=== PATIENT | female | born 1950 | race Caucasian/White ===

== ENCOUNTER 2020-01-22 11:45 | Outpatient (REF) | payer MEDICARE, SELFPAY ==
[2020-01-22 12:46] LABS: MANUAL DIFF FLAG NO
[2020-01-22 12:58] LABS: Basophils Percent Auto 0.4 % (0-2); Eosinophils Absolute Auto 0.1 X10*3/uL (0.0-0.4); Eosinophils Percent Auto 0.9 % (0-4); Hematocrit 38.7 % (37-47); Hemoglobin 12.9 g/dl (12.0-16.0); Imm Gran Abs Auto 0.01 X10*3/uL (0.00-0.03); Imm Gran Pct Auto 0.2 % (0.0-0.4); Lymphocytes Absolute Auto 1.5 X10*3/uL (1.2-4.9); Lymphocytes Percent Auto 27.8 % (20-40); Mean Corpuscular HGB Conc 33.3 g/dl (31.0-35.0); Mean Corpuscular Hemoglobin 31.4 pg (27.0-33.0); Mean Corpuscular Volume 94.2 fL (80-98); Mean Platelet Volume 11.6 fL (9.4-12.3); Monocytes Absolute Auto 0.3 X10*3/uL (0.1-1.2); Monocytes Percent Auto 5.8 % (2-11); Neutrophils Absolute Auto 3.6 X10*3/uL (2.0-8.3); Neutrophils Percent Auto 64.9 % (45-73); Platelet Count 234 X10*3/uL (160-400); Red Blood Count 4.11 X10*6/uL (4.20-5.50); Red Cell Distribution Width 13.4 % (11.0-16.0); White Blood Count 5.5 X10*3/uL (4.8-10.8)
[2020-01-22 13:31] LABS: INTERNATIONAL NORM RATIO 1.3 (0.9-1.1); Prothrombin Time 15.2 SEC (10.8-13.0)
[2020-01-22 13:44] LABS: Partial Thromboplastin Time 105.2 SEC (24.1-38.0)
[2020-01-22 13:49] LABS: TSH reflex Free T4 0.97 mIU/mL (0.32-4.0)
[2020-01-22 13:50] LABS: Alanine Aminotransferase 16 U/L (0-31); Albumin Level 4.1 g/dL (3.5-5.0); Alkaline Phosphatase 61 U/L (39-117); Anion Gap 12 (12-20); Aspartate Amino Transferase 22 U/L (5-31); Bilirubin Total 0.5 mg/dL (0.0-1.0); Blood Urea Nitrogen 16 mg/dL (9-16); C Reactive Protein 0.15 mg/dL (< or = 0.50); Calcium 8.8 mg/dL (8.4-10.2); Carbon Dioxide 29 mmol/L (22-29); Chloride 102 mmol/L (96-108); Cholesterol 181 mg/dL; Estimated Glomerular Filt Rate > 60; Glucose Random 79 mg/dL (60-115); HDL Cholesterol 66 mg/dL; LDL Cholesterol Calculated 101 mg/dl; Potassium 4.3 mmol/l (3.3-5.1); Sodium 139 mmol/L (135-145); Total Protein 6.4 g/dL (6.5-8.0); Triglycerides 72 mg/dL
[2020-01-22 17:45] LABS: Estimated Average Glucose 97 mg/dL
[2020-01-26 12:17] LABS: Insulin Level Total 2.4 uIU/mL
== END 2020-01-22 11:46 | disposition home or self-care (01) ==
LOC: HO.LAB 11:45
PROVIDERS: PCP Psychiatry & Neurology Child & Adolescent Psychiatry; Visit Provider Surgery
DX: E03.9 Hypothyroidism, unspecified (principal); M79.3 Panniculitis, unspecified; E66.3 Overweight; K90.9 Intestinal malabsorption, unspecified
CPT/HCPCS: 36415; 80053; 80061; 83036; 83525; 84443; 85025; 85610; 85730; 86140

== ENCOUNTER 2020-01-29 05:27 | Inpatient (IN) | payer MEDICARE, SELFPAY ==
[2020-01-22 09:05] VITALS: BMI 28.0
--- NOTE | 2020-01-27 14:54 | HO.ANESPROP2 ---
Documented by User: Zamzam Potter 01/27/20 14:56 HPI - Anesthesia Eval Consult details Narrative: 69yo F for panniculectomy and brachioplasty s/p sleeve gastrectomy 2015 [facility] Past Medical History Medical History (Updated 01/23/20 @ 20:38 by Hemanth Staton MD) Arthritis Heart murmur Hypothyroidism Kidney anomaly, congenital Lupus anticoagulant disorder Mitral regurgitation Sleep apnea Thyroid disease Family History Family History Father Lung cancer Mother Lung cancer Brother Prostate CA Daughter No problems noted. Daughter No problems noted. Surgical History Surgical History (Updated 01/22/20 @ 09:14 by Chari Tran) H/O arthroscopy of shoulder History of esophagogastroduodenoscopy (EGD) History of oophorectomy, unilateral History of sleeve gastrectomy History of tonsillectomy and adenoidectomy Hx of section S/P hip replacement S/P DANGELO-BSO (total abdominal hysterectomy and bilateral salpingo-oophorectomy) S/P TKR (total knee replacement) Social History Social History Are you a primary home care nurse to a significant other at home: No Do you presently have visiting nurse or other home services: No Alcohol intake: never Smoking Status: Never smoker Use of substances other than those prescribed or required for medical reasons: No Have you been hit, kicked, punched, or otherwise hurt by someone within the past year? If so, by whom?: No Spiritual Healthcare Practices: none Islam Healthcare Practices: none Cultural Healthcare Practices: none Advance Directives Information Provided: No Recently lost weight without trying: No Meds Allergies Allergy/AdvReac Type Severity Reaction Status Date / Time RAH Inhibitors AdvReac Intermediate COUGH Verified 01/22/20 09:21 [RAH INHIBITORS] diltiazem [Cardizem] AdvReac Unknown Unknown Verified 01/21/20 14:29 BETA BLOCKERS Allergy Intermediate LETHARGIC, Uncoded 01/21/20 14:29 DEPRESSED Seasonal Allergies Allergy Mild Itchy Eyes Uncoded 01/22/20 09:21 Home Medications Medication Instructions Recorded Confirmed Type docusate sodium 100 mg capsule 100 mg PO DAILY 01/19/20 01/22/20 History duloxetine 30 mg capsule,delayed 30 mg PO DAILY 01/19/20 01/22/20 History release levothyroxine 75 mcg tablet 75 mcg PO DAILY 01/19/20 01/22/20 History Exam Exam Date and Time: January 27, 2020 1454 Height,Weight and Vital Signs: Height 4 ft 11.5 in Weight 63.957 kg Pertinent Lab Results Pertinent Lab Results: Laboratory Tests 01/22/20 12:00 Blood Type O Positive Antibody Screen NEGATIVE Laboratory Tests 01/22/20 01/22/20 12:00 12:00 WBC 5.5 Hgb 12.9 Hct 38.7 Plt Count 234 Sodium 139 Potassium 4.3 Chloride 102 BUN 16 Creatinine 0.73 Assessment and Plan Assessment Anesthesia Assessment: Chart Reviewed Documented by User: Atilio Pablo 01/29/20 08:30 [facility] Past Medical History Medical History (Updated 01/23/20 @ 20:38 by Hemanth Staton MD) Arthritis Heart murmur Hypothyroidism Kidney anomaly, congenital Lupus anticoagulant disorder Mitral regurgitation Sleep apnea Thyroid disease Family History Family History Father Lung cancer Mother Lung cancer Brother Prostate CA Daughter No problems noted. Daughter No problems noted. Surgical History Surgical History (Updated 01/22/20 @ 09:14 by Chari Tran) H/O arthroscopy of shoulder History of esophagogastroduodenoscopy (EGD) History of oophorectomy, unilateral History of sleeve gastrectomy History of tonsillectomy and adenoidectomy Hx of section S/P hip replacement S/P DANGELO-BSO (total abdominal hysterectomy and bilateral salpingo-oophorectomy) S/P TKR (total knee replacement) Social History Social History Are you a primary home care nurse to a significant other at home: No Do you presently have visiting nurse or other home services: No Alcohol intake: never Smoking Status: Never smoker Use of substances other than those prescribed or required for medical reasons: No Have you been hit, kicked, punched, or otherwise hurt by someone within the past year? If so, by whom?: No Spiritual Healthcare Practices: none Islam Healthcare Practices: none Cultural Healthcare Practices: none Advance Directives Information Provided: No Recently lost weight without trying: No Meds Allergies Allergy/AdvReac Type Severity Reaction Status Date / Time RAH Inhibitors AdvReac Intermediate COUGH Verified 01/22/20 09:21 [RAH INHIBITORS] diltiazem [Cardizem] AdvReac Unknown Unknown Verified 01/21/20 14:29 BETA BLOCKERS Allergy Intermediate LETHARGIC, Uncoded 01/21/20 14:29 DEPRESSED Seasonal Allergies Allergy Mild Itchy Eyes Uncoded 01/22/20 09:21 Home Medications Medication Instructions Recorded Confirmed Type docusate sodium 100 mg capsule 100 mg PO DAILY 01/19/20 01/22/20 History duloxetine 30 mg capsule,delayed 30 mg PO DAILY 01/19/20 01/22/20 History release levothyroxine 75 mcg tablet 75 mcg PO DAILY 01/19/20 01/22/20 History Exam Airway Mallampati Class: II TM Dist: >3cm Neck ROM: Poor Loose/Missing/Broken Teeth: Yes (States font lower are a little loose) Heart: RRR Assessment and Plan Assessment Anesthesia Assessment: Anesthesia Plan Discussed Final Anesthetic Review NPO: Yes ASA Class: III Final Preanesthetic Review: Consent Obtained/Reviewed Anesthetic Plan Anesthetic Plan: GA Disposition: Standard PACU
[2020-01-29] VITALS (14 sets, daily range): BP systolic 111–163; BP diastolic 42–62; PULSE 61–89; RESP 15–20; TEMP 36.1–36.8; O2SAT 97–100
[2020-01-29 06:09] LABS: COVID-19 Test Negative (Negative)
[2020-01-29] MEDS: Lactated Ringers 1,000 ML 100 ML IVCONT ×3 (06:46→18:27)
--- NOTE | 2020-01-29 07:24 | MHC.SHP ---
Pre-Procedural Eval Section A The patient is an INPATIENT: No The History & Physical has been completed within 30 days and I have reviewed it.: Yes Section B Chief Complaint: s/p panniculectomy Allergies: Allergies Allergy/AdvReac Type Severity Reaction Status Date / Time RAH Inhibitors AdvReac Intermediate COUGH Verified 01/22/20 09:21 [RAH INHIBITORS] diltiazem [Cardizem] AdvReac Unknown Unknown Verified 01/21/20 14:29 BETA BLOCKERS Allergy Intermediate LETHARGIC, Uncoded 01/21/20 14:29 DEPRESSED Seasonal Allergies Allergy Mild Itchy Eyes Uncoded 01/22/20 09:21 Review of Systems Sugical H&P ROS: Negative: Constitution, Cardiovascular, Respiratory, Neurological, Psychiatric, Hem-Onc, Allergic/Immunologic, Gastrointestinal, Genitourinary, Musculoskeletal, Integumentary, Endocrine and Eyes/Ears/Nose/Throat Exam Surgical H&P Exam: Normal: HEENT, Normal: Heart, Normal: Lungs, Normal: Extremities, Normal: Abdomen, Normal: Skin and Normal: Neurological Plan Diagnosis/Plan: Unchanged Patient has been examined and remains a candidate for the planned procedure
[2020-01-29] MEDS: ceFAZolin Sodium/Dextrose,Iso 2 GM/50 ML PIGGYBACK IV ×2 (08:12→18:37)
--- NOTE | 2020-01-29 15:12 | PM.OP ---
Brief Operative Note Date of Service: 01/29/20 Pre-op diagnosis: Panniculitis, intetrigo, massive weight loss Post-op diagnosis: same Procedure: PROCEDURE: Panniculectomy with umbilical transposition and omental flap, bilateral brachioplasty INDICATION: This a 69 year old female who underwent laparoscopic sleeve gastrectomy on 12/06/2015. She had an excellent result achieving a BMI of 27.7 kg/m2 with a total weight loss of 156lbs, or 52.5% of her TBWL. As a result, she has developed panniculitis which has not resolved despite continuous use of clotrimazole ointment as well as skin irritation and intetrigo in both upper arms. On exam she has extreme skin laxity due to massive weight loss and age with the abdominal pannus completely hiding the genitalia and the upper arms 6 cm below the level of the triceps. Panniculectomy with bilateral brachioplasty was recommended. We discussed the two options for the panniculectomy of using a combined vertical and horizontal incisions or just a horizontal (bikini) incision. It was my recommendation to do only horizontal incision based on her body habitus and skin laxity. The patient agreed with this. Risks and complications were discussed with the patient including bleeding, infection, umbilical loss, flap necrosis, asymmetry, dehiscence, seroma, VTE. The patient understood the risks and was in agreement to proceed with surgery. PROCEDURE: The incisions were appropriately marked at the preop area with the patient standing and laying down. After induction of general anesthesia a Ordonez catheter and pneumatic compression devices were placed. The patient was prepped and draped in the usual sterile manner and the incisions were marked again and confirmed. In similar fashion both upper arms were also marked when the patient was standing. The upper arms were performed first. The skin was infiltrated with lidocaine and epinephrine. Skin was excised with the #15 blade. Cautery was used to separate the skin from subcutaneous tissues. Careful attention was paid to make sure that the plain of excision was superficial as close to the skin as possible. The right upper arm skin was 19 cm x 9 cm and the left 21 cm x 7 cm. Skin was closed in two layers using interrupted 3.0 Monocryl sutures for the dermis and 4.0 subcuticular Monocryl suture for the skin. The skin was infiltrated with lidocaine and epinephrine. The #10 blade scalpel was used for the large incisions and the #15 blade scalpel for the umbilicus. Cautery was used to divide the subcutaneous tissues until the fascia was identified. Then I used the Thunderbeat (Olympus) to separate the pannus from the fascia. The inferior incision was made initially and I mobilized the flap for a several centimeters cephalad to the umbilicus. The umbilicus was incised circumferentially and detached from the surrounding tissues all the way to the fascia while its stalk was preserved. With the patient in reflex position I confirmed that the skin flaps were appropriate and would allow for the tissues to come together with reasonable tension. At that point a horizontal incision was made 4 cm above the umbilicus. #10 blade was used for the skin, cautery for the dermis and the Thunderbeat for the remaining tissues. An omental flap was raised from the upper flap in order to fill the space under the skin and support the closure of the two flaps. In addition the inferior flap was mobilized caudally for a few centimeters to create a space for the omental flap as well as relieve tension from the closure. A circumferential incision was made at the area where the umbilicus would be re-implanted. The umbilicus was appropriately oriented and was delivered through the defect and was secured in place with a Mustang. No bleeding was noted anywhere. One JUMANA drain was placed from the right corner of the horizontal incision across the wound and was secured in place with a silk suture. The omental flap was secured under the inferior flap with several interrupted 3.0 Monocryl sutures. The two flaps were brought together and were attached at the midline of the horizontal incision with a #3.0 Monocryl suture. At that point the umbilicus was properly oriented and was re-approximated to the skin with 8 interrupted 3.0 Monocryl sutures. In a similar fashion the skin flaps were re-approximated with multiple 3.0 Monocryl sutures. The skin was closed in all incisions and umbilicus with 4.0 Monocryl sutures. Steri-strips, xeroform gauzes and gauzes were used to cover the incisions. An abdominal binder was also placed. The was awaken and was transferred to the recover room in a stable condition. I was present and performed the entire procedure. Ms. Contreras was the certified anesthesiologist assistant. Leif Staton MD, PhD, FACS Surgeon: Hemanth Staton MD Anesthesia: GETA and local Channel Rebuilder: Mary Contreras Estimated blood loss (mL): 50 IV fluids (mL): 1,600 Urine output (mL): 300 Pathology: other (1) abdominal pannus, 2) left upper arm skin, 3) right upper arm skin) Condition: stable Disposition: PACU
--- NOTE | 2020-01-29 16:15 | P.PNGS_ITS ---
Subjective Subjective Interval history: Patient has mild incisional pain. No nausea. Physical Exam Vital Signs: Vital Signs: Last Vital Signs Temp 97.4 F 01/29/20 15:21 Pulse 89 01/29/20 15:51 Resp 16 01/29/20 15:51 BP 145/61 H 11 15:51 Pulse Ox 97 01/29/20 15:51 Body Mass Index 28.0 Resp: Effort & Inspection: normal respiratory effort Cardio: Jugular venous distension: no JVD Rate: regular rate GI: Inspection: Yes normal to inspection, Yes incision (Clean, Dressings were taken down. flaps and umbilicus are viable. ) and Yes other (Drain with serosanguinous fluid 80ml of bloody drainage overnight. ) Extrem: Right upper extremity: normal to inspection (Dressings were replaced. Incision is intact) Left upper extremity: normal to inspection (Dressings were replaced. Incision is intact) Right lower extremity: normal to inspection (no calf tenderness) Left lower extremity: normal to inspection (no calf tenderness) Progress Note: A&P Assessment and plan (1) Lupus anticoagulant disorder: Status: Acute (2) Pre-op evaluation: Status: Acute (3) Overweight: Status: Acute (4) Panniculitis: Status: Acute (5) S/P panniculectomy: Status: Acute Assessment and Plan: All dressings were replaced. Will d/c Ordonez and begin ambulation. Repeat CBC Fall Risk Details Current Medications: Current Medications Generic Name Dose Route Start Last Admin Trade Name Freq PRN Reason Stop Dose Admin Albuterol Sulfate 2.5 mg 01/29/20 08:30 Albuterol Sulfate (0.083%) 2.5 Mg/3 Ml Vial.Neb INHALE ONCE PRN Wheezing Duloxetine HCl 30 mg 01/30/20 09:00 Duloxetine Hcl 30 Mg Capsule.Dr PO DAILY EMMANUEL Fentanyl 50 mcg 01/29/20 08:30 Fentanyl Citrate/Pf 100 Mcg/2 Ml Vial IVPUSH Q5M PRN Pain, Severe (Pain Scale 7-10) Fentanyl 25 mcg 01/29/20 08:30 Fentanyl Citrate/Pf 100 Mcg/2 Ml Vial IVPUSH Q5M PRN Pain, Moderate (Pain Scale 4-6 Hydromorphone HCl 0.25 mg 01/29/20 15:18 Hydromorphone Hcl 0.5 Mg/0.5 Ml Syringe IVPUSH Q4H PRN Pain, Moderate (Pain Scale 4-6 Lactated Ringer's 1,000 mls @ 100 mls/hr 01/29/20 05:30 01/29/20 06:46 Lr IVCONT 100 mls/hr .Q10H EMMANUEL Administration Lactated Ringer's 1,000 mls @ 100 mls/hr 01/29/20 07:30 01/29/20 08:12 Lr IVCONT 100 mls/hr .Q10H EMMANUEL Administration Promethazine HCl 12.5 mg/ 50.5 mls @ 202 mls/hr 01/29/20 08:30 Sodium Chloride IV ONCE PRN Nausea and Vomiting Lactated Ringer's 1,000 mls @ 100 mls/hr 01/29/20 15:30 Lr IVCONT .Q10H EMMANUEL Cefazolin Sodium/Dextrose 2 gm in 50 mls @ 100 mls/hr 01/29/20 18:00 Ancef IV RQ6H EMMANUEL Acetaminophen 1,000 mg in 100 mls @ 16.7 mls/hr 01/29/20 17:00 Ofirmev IV 02/01/20 16:51 .Q6H EMMANUEL Levothyroxine Sodium 75 mcg 01/30/20 06:00 Levothyroxine Sodium 75 Mcg Tablet PO DAILY@0600 EMMANUEL Ondansetron HCl 4 mg 01/29/20 08:30 Ondansetron Hcl 4 Mg/2 Ml Vial IVPUSH ONCE PRN Nausea and Vomiting Ondansetron HCl 4 mg 01/29/20 15:30 Ondansetron Hcl 4 Mg/2 Ml Vial IVPUSH Q8H [facility] Sodium Chloride 3 ml 01/29/20 16:00 0.9 % Sodium Chloride Flush 3 Ml Syringe IVFLUSH QSHIFT EMMANUEL Time Spent With Patient Time: Total time spent is greater than 50% in coordination of care (as documented) at patient's floor/unit and/or counseling patient: Time with patient: 15 - 24 minutes Procedures Abscess I/D Date of Service: 01/30/20
[2020-01-29 17:28] LABS: Basophils Percent Auto 0.1 % (0-2); Hematocrit 37.2 % (37-47); Hemoglobin 12.1 g/dl (12.0-16.0); Imm Gran Abs Auto 0.05 X10*3/uL (0.00-0.03); Imm Gran Pct Auto 0.3 % (0.0-0.4); Lymphocytes Absolute Auto 0.5 X10*3/uL (1.2-4.9); MANUAL DIFF FLAG SCAN; Mean Corpuscular HGB Conc 32.5 g/dl (31.0-35.0); Mean Corpuscular Hemoglobin 30.8 pg (27.0-33.0); Mean Corpuscular Volume 94.7 fL (80-98); Mean Platelet Volume 11.4 fL (9.4-12.3); Monocytes Absolute Auto 0.5 X10*3/uL (0.1-1.2); Neutrophils Absolute Auto 14.8 X10*3/uL (2.0-8.3); Neutrophils Percent Auto 93.6 % (45-73); Platelet Count 200 X10*3/uL (160-400); Red Blood Count 3.93 X10*6/uL (4.20-5.50); Red Cell Distribution Width 13.4 % (11.0-16.0); SCAN SMEAR FLAG 1; White Blood Count 15.9 X10*3/uL (4.8-10.8)
[2020-01-29 17:46] LABS: Anion Gap 15 (12-20); Blood Urea Nitrogen 19 mg/dL (9-16); Calcium 8.2 mg/dL (8.4-10.2); Carbon Dioxide 24 mmol/L (22-29); Chloride 104 mmol/L (96-108); Creatinine Clr Calc Pharmacy 55.3; Estimated Glomerular Filt Rate > 60; Glucose Random 109 mg/dL (60-115); Potassium 4.3 mmol/l (3.3-5.1); Sodium 139 mmol/L (135-145)
[2020-01-29 18:22] LABS: SLIDE REVIEW VERIFIED
--- NOTE | 2020-01-29 19:23 | MHC.PIE ---
Upon arrival on the unit from PACU, pt noted to have staining on right upper extremity dressing. Dr. Staton alerted via tiger text. Dressing reinforced by resource nurse Marleni.
[2020-01-29] MEDS: ondansetron HCL 4 MG/2 ML VIAL IVPUSH (22:25)
[2020-01-30] VITALS (13 sets, daily range): BP systolic 100–137; BP diastolic 46–60; PULSE 65–78; RESP 16–19; TEMP 36.3–37.1; O2SAT 96–100
[2020-01-30] MEDS: ceFAZolin Sodium/Dextrose,Iso 2 GM/50 ML PIGGYBACK IV ×5 (00:41→23:33)
[2020-01-30] MEDS: 0.9 % Sodium Chloride Flush 3 ML SYRINGE IVFLUSH ×3 (00:43→14:39)
[2020-01-30] MEDS: Lactated Ringers 1,000 ML 100 ML IVCONT ×3 (00:44→22:00)
[2020-01-30 05:15] LABS: MANUAL DIFF FLAG NO
[2020-01-30 05:18] LABS: Basophils Percent Auto 0.1 % (0-2); Hematocrit 27.4 % (37-47); Imm Gran Abs Auto 0.03 X10*3/uL (0.00-0.03); Imm Gran Pct Auto 0.3 % (0.0-0.4); Lymphocytes Absolute Auto 0.8 X10*3/uL (1.2-4.9); Lymphocytes Percent Auto 7.3 % (20-40); Mean Corpuscular HGB Conc 32.8 g/dl (31.0-35.0); Mean Corpuscular Hemoglobin 31.3 pg (27.0-33.0); Mean Corpuscular Volume 95.1 fL (80-98); Monocytes Absolute Auto 0.9 X10*3/uL (0.1-1.2); Monocytes Percent Auto 7.7 % (2-11); Neutrophils Absolute Auto 9.5 X10*3/uL (2.0-8.3); Neutrophils Percent Auto 84.6 % (45-73); Platelet Count 184 X10*3/uL (160-400); Red Blood Count 2.88 X10*6/uL (4.20-5.50); Red Cell Distribution Width 13.5 % (11.0-16.0); White Blood Count 11.2 X10*3/uL (4.8-10.8)
[2020-01-30] MEDS: Levothyroxine Sodium 75 MCG TABLET PO (05:33)
[2020-01-30 05:42] LABS: Anion Gap 13 (12-20); Blood Urea Nitrogen 15 mg/dL (9-16); Calcium 7.7 mg/dL (8.4-10.2); Carbon Dioxide 26 mmol/L (22-29); Chloride 101 mmol/L (96-108); Creatinine Clr Calc Pharmacy 63.4; Estimated Glomerular Filt Rate > 60; Glucose Random 109 mg/dL (60-115); Potassium 4.8 mmol/l (3.3-5.1); Sodium 135 mmol/L (135-145)
[2020-01-30] MEDS: ondansetron HCL 4 MG/2 ML VIAL IVPUSH ×3 (07:36→23:33)
[2020-01-30 09:40] LABS: MANUAL DIFF FLAG NO
[2020-01-30 09:49] LABS: Basophils Percent Auto 0.2 % (0-2); Hematocrit 25.1 % (37-47); Hemoglobin 8.4 g/dl (12.0-16.0); Imm Gran Abs Auto 0.03 X10*3/uL (0.00-0.03); Imm Gran Pct Auto 0.4 % (0.0-0.4); Lymphocytes Absolute Auto 1.3 X10*3/uL (1.2-4.9); Lymphocytes Percent Auto 15.6 % (20-40); Mean Corpuscular HGB Conc 33.5 g/dl (31.0-35.0); Mean Corpuscular Hemoglobin 31.7 pg (27.0-33.0); Mean Corpuscular Volume 94.7 fL (80-98); Mean Platelet Volume 11.8 fL (9.4-12.3); Monocytes Absolute Auto 0.7 X10*3/uL (0.1-1.2); Monocytes Percent Auto 8.9 % (2-11); Neutrophils Absolute Auto 6.2 X10*3/uL (2.0-8.3); Neutrophils Percent Auto 74.9 % (45-73); Platelet Count 187 X10*3/uL (160-400); Red Blood Count 2.65 X10*6/uL (4.20-5.50); Red Cell Distribution Width 13.5 % (11.0-16.0); White Blood Count 8.3 X10*3/uL (4.8-10.8)
--- NOTE | 2020-01-30 09:50 | MHC.CM.PN ---
Pt reports she lives alone and is independent with all care and mobility. Pt reports she does not use DME and has no home/community services. Pt reports she has a HCP completed already naming her daughter as her agent. Pt confirms PCP listed, Aleksander Perales, as accurate. Pt reports she will need long term visits upon discharge and has been active with [facility] in the past. Pt reports he daughter will be staying with her post discharge however she has some concern because her daughter may have been exposed to Covid 19. Places where her daughter could be tested were discussed as well as the importance of quarantine as it may not show up if she was exposed recently. IMM delivered current DC plan is home with VNA, referral sent to [facility]. Pts daughter will provide transportation
[2020-01-30] MEDS: DULoxetine HCl 30 MG CAPSULE.DR PO (10:04)
--- NOTE | 2020-01-30 10:28 | HO.POSTANES ---
Post Anesthesia Evaluation Post Anesthesia Evaluation Vital Signs: Vital Signs Temp Pulse Resp BP Pulse Ox 01/30/20 08:31 97 01/30/20 07:39 97.8 F 73 16 100/47 L 98 01/30/20 05:25 777 F H 65 19 116/47 L 98 01/30/20 00:00 97.3 F 78 19 100/53 L 96 Anesthesia: General Endotracheal-GETA Mental Status: Awake Pain Control: Satisfactory Nausea/Vomiting: None Hydration: Adequate Anesthesia-Related Issues: No Anes. Related Issues
--- NOTE | 2020-01-30 15:43 | MHC.CM.PN ---
CM received a response from [facility]. They are able to accept pts referral and ask that pts DC summary/orders be sent via [employer] prior to her discharge. Current DC plan is home with VNA, daughter to transport
[2020-01-31 03:38] VITALS: BP 112/44; PULSE 74; RESP 19; TEMP 36.4; O2SAT 99
[2020-01-31] MEDS: Levothyroxine Sodium 75 MCG TABLET PO (05:33)
[2020-01-31] MEDS: ceFAZolin Sodium/Dextrose,Iso 2 GM/50 ML PIGGYBACK IV ×2 (05:36→12:29)
[2020-01-31 07:46] VITALS: BP 137/45; PULSE 79; RESP 18; TEMP 36.7; O2SAT 100
[2020-01-31] MEDS: Lactated Ringers 1,000 ML 100 ML IVCONT (07:48)
[2020-01-31 07:50] LABS: MANUAL DIFF FLAG NO
[2020-01-31 07:56] LABS: Basophils Percent Auto 0.2 % (0-2); Eosinophils Absolute Auto 0.1 X10*3/uL (0.0-0.4); Eosinophils Percent Auto 1.1 % (0-4); Hematocrit 28.9 % (37-47); Hemoglobin 9.9 g/dl (12.0-16.0); Imm Gran Abs Auto 0.01 X10*3/uL (0.00-0.03); Imm Gran Pct Auto 0.2 % (0.0-0.4); Lymphocytes Absolute Auto 1.2 X10*3/uL (1.2-4.9); Lymphocytes Percent Auto 18.7 % (20-40); Mean Corpuscular HGB Conc 34.3 g/dl (31.0-35.0); Mean Corpuscular Hemoglobin 31.6 pg (27.0-33.0); Mean Corpuscular Volume 92.3 fL (80-98); Mean Platelet Volume 12.2 fL (9.4-12.3); Monocytes Absolute Auto 0.7 X10*3/uL (0.1-1.2); Monocytes Percent Auto 10.6 % (2-11); Neutrophils Absolute Auto 4.6 X10*3/uL (2.0-8.3); Neutrophils Percent Auto 69.2 % (45-73); Platelet Count 137 X10*3/uL (160-400); Red Blood Count 3.13 X10*6/uL (4.20-5.50); Red Cell Distribution Width 13.8 % (11.0-16.0); White Blood Count 6.6 X10*3/uL (4.8-10.8)
[2020-01-31] MEDS: DULoxetine HCl 30 MG CAPSULE.DR PO (08:07)
[2020-01-31] MEDS: ondansetron HCL 4 MG/2 ML VIAL IVPUSH (08:07)
--- NOTE | 2020-01-31 10:46 | PM.PNGS ---
Subjective Subjective Interval history: Received 2 units of PRBCs. Feels much better today. Was able to ambulate withut dizziness. No nausea or pain. Physical Exam Vital Signs: Vital Signs: Last Vital Signs Temp 98.1 F 01/31/20 07:46 Pulse 79 01/31/20 07:46 Resp 18 01/31/20 07:46 BP 137/45 L 01/31/20 07:46 Pulse Ox 100 01/31/20 07:46 Body Mass Index 28.0 GI: Inspection: Yes normal to inspection and Yes incision (dressings changes. Flaps viable. No drainage/infection) Extrem: Right upper extremity: normal to inspection (dressings changes. Flaps viable. No drainage/infection) and normal capillary refill Left upper extremity: normal to inspection (dressings changes. Flaps viable. No drainage/infection) and normal capillary refill Right lower extremity: normal to inspection (no calf tenderness) Left lower extremity: normal to inspection (no calf tenderness) Progress Note: A&P Assessment and plan (1) S/P panniculectomy: Status: Acute Assessment and Plan: Discharge home Instructions were provided to the patient No anticoagulation yet (2) Panniculitis: Status: Acute (3) Lupus anticoagulant disorder: Status: Acute Fall Risk Details Current Medications: Current Medications Generic Name Dose Route Start Last Admin Trade Name Freq PRN Reason Stop Dose Admin Albuterol Sulfate 2.5 mg 01/29/20 08:30 Albuterol Sulfate (0.083%) 2.5 Mg/3 Ml Vial.Neb INHALE ONCE PRN Wheezing Duloxetine HCl 30 mg 01/30/20 09:00 01/31/20 08:07 Duloxetine Hcl 30 Mg Capsule.Dr PO 30 mg DAILY EMMANUEL Administration Fentanyl 50 mcg 01/29/20 08:30 Fentanyl Citrate/Pf 100 Mcg/2 Ml Vial IVPUSH Q5M PRN Pain, Severe (Pain Scale 7-10) Fentanyl 25 mcg 01/29/20 08:30 Fentanyl Citrate/Pf 100 Mcg/2 Ml Vial IVPUSH Q5M PRN Pain, Moderate (Pain Scale 4-6 Hydromorphone HCl 0.25 mg 01/29/20 15:18 Hydromorphone Hcl 0.5 Mg/0.5 Ml Syringe IVPUSH Q4H PRN Pain, Moderate (Pain Scale 4-6 Lactated Ringer's 1,000 mls @ 100 mls/hr 01/29/20 05:30 01/31/20 08:08 Lr IVCONT Infused .Q10H EMMANUEL Infusion Lactated Ringer's 1,000 mls @ 100 mls/hr 01/29/20 07:30 01/31/20 07:48 Lr IVCONT 100 mls/hr .Q10H EMMANUEL Administration Promethazine HCl 12.5 mg/ 50.5 mls @ 202 mls/hr 01/29/20 08:30 Sodium Chloride IV ONCE PRN Nausea and Vomiting Lactated Ringer's 1,000 mls @ 100 mls/hr 01/29/20 15:30 01/31/20 07:55 Lr IVCONT Not Given .Q10H EMMANUEL Cefazolin Sodium/Dextrose 2 gm in 50 mls @ 100 mls/hr 01/29/20 18:00 01/31/20 06:06 Ancef IV Infused RQ6H EMMANUEL Infusion Acetaminophen 1,000 mg in 100 mls @ 16.7 mls/hr 01/29/20 17:00 01/31/20 09:37 Ofirmev IV 02/01/20 16:51 16.7 mls/hr .Q6H EMMANUEL Administration Levothyroxine Sodium 75 mcg 01/30/20 06:00 01/31/20 05:33 Levothyroxine Sodium 75 Mcg Tablet PO 75 mcg DAILY@0600 EMMANUEL Administration Ondansetron HCl 4 mg 01/29/20 08:30 Ondansetron Hcl 4 Mg/2 Ml Vial IVPUSH ONCE PRN Nausea and Vomiting Ondansetron HCl 4 mg 01/29/20 15:30 01/31/20 08:07 Ondansetron Hcl 4 Mg/2 Ml Vial IVPUSH 4 mg Q8H EMMANUEL Administration Sodium Chloride 3 ml 01/29/20 16:00 01/31/20 08:03 0.9 % Sodium Chloride Flush 3 Ml Syringe IVFLUSH Not Given QSHIFT EMMANUEL Time Spent With Patient Time: Total time spent is greater than 50% in coordination of care (as documented) at patient's floor/unit and/or counseling patient: Time with patient: 15 - 24 minutes Procedures Abscess I/D Date of Service: 01/31/20
[2020-01-31 11:53] VITALS: BP 126/45; PULSE 78; RESP 18; TEMP 36.5; O2SAT 99
--- NOTE | 2020-03-09 16:06 | P.DS_ITS ---
DS: Providers Provider Date of admission: 01/29/20 05:27 Primary care physician: Aleksander Preales MD DS: Diagnosis Discharge Diagnosis (1) S/P panniculectomy: Status: Acute (2) Panniculitis: Status: Inactive (3) Lupus anticoagulant disorder: Status: Acute DS: Medications Discharge Medications Home Medications: Home Medications Medication Instructions Recorded Confirmed docusate sodium 100 mg capsule 100 mg PO DAILY 01/19/20 01/22/20 duloxetine 30 mg capsule,delayed 30 mg PO DAILY 01/19/20 01/22/20 release levothyroxine 75 mcg tablet 75 mcg PO DAILY 01/19/20 01/22/20 duloxetine 20 mg capsule,delayed 20 mg PO BID 02/06/20 release Previous Rx's Medication Instructions Recorded bismuth tribrom-petrolatum,wh 1 X #200 ea 01/19/20 8 bandage cephalexin 250 mg capsule 250 mg PO Q12H #14 cap 01/19/20 fondaparinux 2.5 mg/0.5 mL 2.5 mg SUBCUT DAILY #5 ml 01/23/20 subcutaneous solution syringe cephalexin 500 mg capsule 500 mg PO Q12H #30 cap 02/16/20 ciprofloxacin HCl 500 mg tablet 500 mg PO Q12H #30 tab 02/19/20 DS: Summary Time Spent with Patient Time attestation: Total time spent providing and/or coordinating discharge services: Physical Exam Vital Signs: Vital Signs: Last Vital Signs Temp 97.7 F 01/31/20 11:53 Pulse 78 01/31/20 11:53 Resp 18 01/31/20 11:53 BP 126/45 L 01/31/20 11:53 Pulse Ox 99 01/31/20 11:53 Body Mass Index 28.0 DS: Data Data Completed and Pending Completed studies during hospitalization [Text1]: Pending at discharge 01/29/20 12:42 Surgical [PTH] Routine Procedures Alteration of Abdominal Wall, Open Approach (01/29/20) Excision of Abdomen Skin, External Approach (01/29/20) Excision of Left Upper Arm Skin, External Approach (01/29/20) Excision of Right Upper Arm Skin, External Approach (01/29/20) Transfusion of Nonautologous Red Blood Cells into Peripheral Vein, Percutaneous Approach (01/29/20) Labs on day of discharge: 01/22/20 12:00 Red Blood Cells Routine Type and Screen Routine 01/29/20 05:27 Acetaminophen [Ofirmev] 1,000 mg in 100 ml IV PREOP 01/29/20 05:30 COVID-19 ID NOW ([facility]) Stat Lactated Ringers [Lr] 1,000 ml IVCONT 100 mls/hr 01/29/20 06:47 Acetaminophen [Ofirmev] 1,000 mg in 100 ml IV As directed 01/29/20 07:25 ceFAZolin Sodium/Dextrose,Iso [Ancef] 2 gm in 50 ml IV PREOP 01/29/20 07:30 Lactated Ringers [Lr] 1,000 ml IVCONT 100 mls/hr 01/29/20 07:37 Lidocaine HCl 2 % MPF [Xylocaine 2 % MPF] 5 ml .ROUTE .STK-MED ONE Midazolam HCl/PF [Versed] 2 mg .ROUTE .STK-MED ONE Rocuronium [place] [Zemuron] 100 mg IV .STK-MED ONE Succinylcholine Chloride [Quelicin] 100 mg IVPUSH .STK-MED ONE fentaNYL citrate/PF [Sublimaze] 50 mcg .ROUTE .STK-MED ONE propofoL [Diprivan] 200 mg IVPUSH .STK-MED ONE 01/29/20 07:58 ceFAZolin Sodium/Dextrose,Iso [Ancef] 2 gm in 50 ml .ROUTE As directed 01/29/20 08:26 Lidocaine HCl 1%/Epi 1:100,000 [Xylocaine 1 %-EPI 1:100,000] 30 ml .ROUTE .STK-MED ONE 01/29/20 08:30 Albuterol Sulfate (0.083%) [Ventolin (0.083%)] 2.5 mg INHALE ONCE PRN Promethazine HCL [Phenergan] 12.5 mg 0.9 % Sodium Chloride [Ns] 50 ml IV ONCE fentaNYL citrate/PF [Sublimaze] 25 mcg IVPUSH Q5M PRN fentaNYL citrate/PF [Sublimaze] 50 mcg IVPUSH Q5M PRN ondansetron HCL [Zofran] 4 mg IVPUSH ONCE PRN 01/29/20 08:31 Continuous pulse oximetry CONT Oxygen administration Nasal Cannula 3 lpm Vital Signs Q1H Vital Signs Q5MIN 01/29/20 08:46 Lidocaine HCl 1%/Epi 1:100,000 [Xylocaine 1 %-EPI 1:100,000] 30 ml .ROUTE .STK-MED ONE 01/29/20 Breakfast NPO Diet 01/29/20 10:59 HYDROmorphone HCl [Dilaudid] 2 mg .ROUTE .STK-MED ONE 01/29/20 12:42 Surgical [PTH] Routine 01/29/20 12:47 ceFAZolin Sodium [Ancef] 1 gm .ROUTE .STK-MED ONE 01/29/20 13:05 dexAMETHasone sod phosphate [Decadron] 4 mg .ROUTE .STK-MED ONE ondansetron HCL [Zofran] 4 mg .ROUTE .STK-MED ONE 01/29/20 15:18 Apply Abdominal Binder DIRECTED Bedrest ONGOING Compression Therapy QSHIFT Code Status Routine HYDROmorphone HCl [Dilaudid] 0.25 mg IVPUSH Q4H PRN 01/29/20 15:19 Head of bed elevation DIRECTED Incentive Spirometry Q1HR WHILE AWAKE Intake and Output Q4HR 01/29/20 15:21 Drain Management Orders ONGOING Vital Signs QSHIFT 01/29/20 15:30 Lactated Ringers [Lr] 1,000 ml IVCONT 100 mls/hr ondansetron HCL [Zofran] 4 mg IVPUSH Q8H 01/29/20 16:00 0.9 % Sodium Chloride Flush [NS Flush] 3 ml IVFLUSH QSHIFT 01/29/20 17:00 Acetaminophen [Ofirmev] 1,000 mg in 100 ml IV 16.7 mls/hr 01/29/20 17:05 Basic Metabolic Panel DAILY@0500 Complete Blood Count Auto Diff DAILY@0500 SLIDE REVIEW Routine 01/29/20 18:00 ceFAZolin Sodium/Dextrose,Iso [Ancef] 2 gm in 50 ml IV RQ6H 01/30/20 04:29 Basic Metabolic Panel DAILY@0500 Complete Blood Count Auto Diff DAILY@0500 01/30/20 06:00 Levothyroxine Sodium [Synthroid] 75 mcg PO DAILY@0600 01/30/20 09:00 DULoxetine HCl [Cymbalta] 30 mg PO DAILY 01/30/20 09:29 Complete Blood Count Auto Diff Stat 01/31/20 07:09 Complete Blood Count Auto Diff Routine Laboratory Last Values WBC 6.6 X10*3/uL (4.8-10.8) 01/31/20 07:09 RBC 3.13 X10*6/uL (4.20-5.50) L 01/31/20 07:09 Hgb 9.9 g/dl (12.0-16.0) L 01/31/20 07:09 Hct 28.9 % (37-47) L 01/31/20 07:09 MCV 92.3 fL (80-98) 01/31/20 07:09 MCH 31.6 pg (27.0-33.0) 01/31/20 07:09 MCHC 34.3 g/dl (31.0-35.0) 01/31/20 07:09 RDW 13.8 % (11.0-16.0) 01/31/20 07:09 Plt Count 137 X10*3/uL (160-400) L D 01/31/20 07:09 MPV 12.2 fL (9.4-12.3) 01/31/20 07:09 Immature Gran % (Auto) 0.2 % (0.0-0.4) 01/31/20 07:09 Neut % (Auto) 69.2 % (45-73) 01/31/20 07:09 Lymph % (Auto) 18.7 % (20-40) L 01/31/20 07:09 [place] % (Auto) 10.6 % (2-11) 01/31/20 07:09 Eos % (Auto) 1.1 % (0-4) 01/31/20 07:09 Baso % (Auto) 0.2 % (0-2) 01/31/20 07:09 Lymph # (Auto) 1.2 X10*3/uL (1.2-4.9) 01/31/20 07:09 [place] # (Auto) 0.7 X10*3/uL (0.1-1.2) 01/31/20 07:09 Eos # (Auto) 0.1 X10*3/uL (0.0-0.4) 01/31/20 07:09 Baso # (Auto) 0.0 X10*3/uL (0.0-0.2) 01/31/20 07:09 Abs Immat Gran (auto) 0.01 X10*3/uL (0.00-0.03) 01/31/20 07:09 Absolute Neuts (auto) 4.6 X10*3/uL (2.0-8.3) 01/31/20 07:09 Absolute Nucleated RBC 0.000 X10*3/uL (0.0-0.012) 01/31/20 07:09 Nucleated RBC % (auto) 0.0 /100WBC (0.0-0.2) 01/31/20 07:09 Smear Tech's Comments VERIFIED 01/29/20 17:05 Sodium 135 mmol/L (135-145) 01/30/20 04:29 Potassium 4.8 mmol/l (3.3-5.1) 01/30/20 04:29 Chloride 101 mmol/L (96-108) 01/30/20 04:29 Carbon Dioxide 26 mmol/L (22-29) 01/30/20 04:29 Anion Gap 13 (-20) 01/30/20 04:29 BUN 15 mg/dL (9-16) 01/30/20 04:29 Creatinine 0.68 mg/dL (0.5-1.4) 01/30/20 04:29 Estim Creat Clear Calc 63.4 01/30/20 04:29 Estimated GFR > 60 01/30/20 04:29 Random Glucose 109 mg/dL (60-115) 01/30/20 04:29 Calcium 7.7 mg/dL (8.4-10.2) L D 01/30/20 04:29 COVID-19 (LUIS) Negative (Negative) 01/29/20 05:30 COVID-19 Clin Com See Note 01/29/20 05:30 Blood Type O Positive 01/22/20 12:00 Antibody Screen NEGATIVE 01/22/20 12:00 Crossmatch See Detail 01/22/20 12:00 Discharge Plan Discharge Patient Disposition: Home Health Service Referrals: [facility] [Other] (PATIENT IS DISCHARGED HOME WITH DAILY DRESSING CHANGES) Aleksander Perales MD [Primary Care Provider] - Discharge Medications: Continued levothyroxine 75 mcg tablet 75 mcg PO DAILY RF: 0 duloxetine 30 mg capsule,delayed release(DR/EC) 30 mg PO DAILY RF: 0 docusate sodium [Colace] 100 mg capsule 100 mg PO DAILY RF: 0 cephalexin [Keflex] 250 mg capsule 250 mg PO Q12H Qty: 14 RF: 0 (DME) Xeroform Petrolatum Dressing 1 X 8 bandage See Rx Instructions .ROUTE .MEDSUPPLY Qty: 200 RF: 2 Held fondaparinux [Arixtra] 2.5 mg/0.5 mL syringe 2.5 mg subcut DAILY Qty: 5 RF: 2 Hold Instructions: to be determined by physician No Action cephalexin 500 mg capsule 500 mg PO Q12H Qty: 30 RF: 0 ciprofloxacin HCl [Cipro] 500 mg tablet 500 mg PO Q12H Qty: 30 RF: 1 duloxetine [Cymbalta] 20 mg capsule,delayed release(DR/EC) 20 mg PO BID RF: 0 Discharge Orders: Discharge Order (Routine); Ordered 01/31/20 Ordered By: Hemanth Staton Diet: advance to usual diet Activity on Discharge: see below Discharge Date/Time: 01/31/20 14:18 Activity Restrictions/Additional Instructions: 1. Record and write down drain output for 24 hour periods. Bring sheet at the next office visit 2) Start prescribed Keflex antibiotic 3) No showers. Only sponge baths 4) Avoid any tension at the abdomen and have always help to get up 5) Take 1tab Colace and one tablespoon of Metamucil daily 6) Diet: 4 Pure protein shakes 1/2 scoop in 8oz of almond milk, or 3 shakes and one bar, or 3 shakes and one meal (2oz meat and 2oz salad) 7) wear binder at all times 8) keep both arms slightly elevated 9) change dressings daily and send pictures to Dr. Staton. Replace loose steri-strips and xeroform gauze at the incisions and umbilicus. 9) supplies needed: ABD pads, 4x4 dressings, xeroform gauze, 1/2'' steri-strips, paper tape. Will need several of the above on a daily basis. DISCHARGE SUMMARY ADMITTING DIAGNOSIS: panniculitis, s/p lap sleeve gastrectomy, known lupus anticoagulant positive iwth pre op PTT of 100. DISCHARGE DIAGNOSIS: The same. PAST SURGICAL HISTORY: Lap sleeve gastrectomy 2016. PROCEDURE: Panniculectomy and bilateral brachioplasty HISTORY OF PRESENT ILLNESS: The patient is a 69 year-old woman with a BMI of 28 kg/m2 and associated co- morbidities as described previous. The patient had a laparoscopic sleeve gastrectomy in 2016 and has lost a total of 156 lbs, or 52.5% of her initial weight and her BMI reduced to 59 kg/m2 from 28 kg/m2. As a result of the massive weight loss she developed a large abdominal pannus and persistent panniculitis recalcitrant to medical treatment. The patient was electively scheduled for panniculectomy and bilateral brachioplasty. Risks and complications of the surgery were discussed with the patient in advance, particularly the possibility of , pulmonary embolism, skin necrosis, loss of umbilicus, flap necrosis, wound dehiscence, flap asymmetry, bleeding requiring transfusion. The patient understood all the risks and was in agreement with the surgical plan. On postoperative day #1 the patient was started on Phase 3 bariatric diet. The Ordonez was discontinued. She was allowed to ambulate and she had no dizziness. During the first day, the patient did fairly well, having some incisional pain, but able to ambulate adequately and to tolerate liquids well. All dressings were taken down and the all incisions were inspected. There was no evidence of infection or bleeding or significant discharge. All flaps and umbilicus were viable and there was no dehiscence. JUMANA drains had minimal output with serosanguinous fluid. Since the patient is doing well, we decided that the patient was ready to be discharged. The patient was given instructions to follow-up with me next week and to call my office for any fever over 101, persistent abdominal pain, nausea, vomiting, and symptoms of DVT such as calf tenderness, or leg swelling, or pulmonary embolism such as chest pain or shortness of breath. The patient was also instructed to drink 40-60 ounces of liquids per day using the 1-ounce cups and start on 3 Pure protein shakes per day. The patient was given prescription for Tylenol for pain, Zofran prn for nausea and a 10-day course of Keflex twice a day. The patient was encouraged to ambulate and use the incentive spirometer. However it was strongly recommended to do so with assistance and avoid any abdominal straining for at least one month. The patient was allowed only to do sponge baths, and encouraged to use the recliner at home and not the bed. All of these instructions were given to the patient personally. All questions were answered and the patient understood all instructions. The instructions were given to the patient in print as well. Her hemoglobin dropped from 12 to 8 and she was transfused 1 U PRBC's, surgical dressings remained dry. Visit Report Forms: Patient Portal Discharge page Care Plan Goals: medically-necessary skin removal Health Concerns: panniculitis Plan of Treatment: panniculectomy and brachioplasty
== END 2020-01-31 14:18 | disposition home health service (06) | DRG 580 ==
LOC: HO.SSSA 05:32 → HO.ICU 16:49 → HO.SSSA 16:54 → HO.S3 17:08
PROVIDERS: Physician Assistant; Admitting Provider Surgery; PCP Psychiatry & Neurology Child & Adolescent Psychiatry; Visit Provider Surgery
PROC: 0JB80ZZ Excision of Abdomen Subcutaneous Tissue and Fascia, Open Approach (ICD-10-PCS; CPT 15830; principal; 2020-01-29 08:10)
PROC: 0HB7XZZ Excision of Abdomen Skin, External Approach (ICD-10-PCS; CPT 15836; 2020-01-29 08:10)
DX: M79.3 Panniculitis, unspecified (principal); D68.62 Lupus anticoagulant syndrome; L30.4 Erythema intertrigo; Z20.828 Contact with and (suspected) exposure to other viral communicable diseases; Z98.84 Bariatric surgery status; Z79.890 Hormone replacement therapy; Z79.899 Other long term (current) drug therapy
CPT/HCPCS: 36415; 80048; 85025; 86850; 86900; 86901; 86920; 86923; 87635; 88304; 88305; 99024; C1758; J0131; J0330; J0690; J1100; J1170; J2250; J2405; J3010; P9016

== ENCOUNTER → 2020-02-06 07:48 | Outpatient (BNVA) | payer MEDICARE, SELFPAY | PROVIDERS: PCP Psychiatry & Neurology Child & Adolescent Psychiatry; Visit Provider Surgery | DX: Z48.89 Encounter for other specified surgical aftercare (principal) | CPT/HCPCS: 99212 ==

== ENCOUNTER → 2020-02-16 07:19 | Outpatient (BNVA) | payer MEDICARE, SELFPAY | PROVIDERS: PCP Psychiatry & Neurology Child & Adolescent Psychiatry; Referring Provider Psychiatry & Neurology Child & Adolescent Psychiatry; Visit Provider Surgery | DX: Z48.89 Encounter for other specified surgical aftercare (principal); E66.3 Overweight; Z68.28 Body mass index [BMI] 28.0-28.9, adult; Z98.84 Bariatric surgery status | CPT/HCPCS: 99212 ==

== ENCOUNTER 2020-02-20 10:00 | Outpatient (REF) | payer MEDICARE, SELFPAY ==
[2020-02-20 13:05] LABS: Basophils Percent Auto 0.1 % (0-2); Eosinophils Absolute Auto 0.1 X10*3/uL (0.0-0.4); Eosinophils Percent Auto 0.7 % (0-4); Hematocrit 32.4 % (37-47); Hemoglobin 10.6 g/dl (12.0-16.0); Imm Gran Abs Auto 0.04 X10*3/uL (0.00-0.03); Imm Gran Pct Auto 0.5 % (0.0-0.4); Lymphocytes Absolute Auto 1.3 X10*3/uL (1.2-4.9); Lymphocytes Percent Auto 14.2 % (20-40); MANUAL DIFF FLAG NO; Mean Corpuscular HGB Conc 32.7 g/dl (31.0-35.0); Mean Corpuscular Hemoglobin 31.9 pg (27.0-33.0); Mean Corpuscular Volume 97.6 fL (80-98); Mean Platelet Volume 11.5 fL (9.4-12.3); Monocytes Absolute Auto 0.9 X10*3/uL (0.1-1.2); Monocytes Percent Auto 10.6 % (2-11); Neutrophils Absolute Auto 6.6 X10*3/uL (2.0-8.3); Neutrophils Percent Auto 73.9 % (45-73); Platelet Count 244 X10*3/uL (160-400); Red Blood Count 3.32 X10*6/uL (4.20-5.50); Red Cell Distribution Width 14.3 % (11.0-16.0); White Blood Count 8.9 X10*3/uL (4.8-10.8)
[2020-02-20 13:40] LABS: C Reactive Protein 13.45 mg/dL (< or = 0.50)
== END 2020-02-20 10:01 | disposition home or self-care (01) ==
LOC: HO.LAB 10:00
PROVIDERS: PCP Psychiatry & Neurology Child & Adolescent Psychiatry; Visit Provider Surgery
DX: T14.8XXA Other injury of unspecified body region, initial encounter (principal); E03.9 Hypothyroidism, unspecified; Z98.890 Other specified postprocedural states
CPT/HCPCS: 36415; 85025; 86140; 87070; 87077; 87186; 87205; 99212

== ENCOUNTER 2020-02-25 09:02 | Outpatient (REF) | payer MEDICARE, SELFPAY ==
[2020-02-25 11:08] LABS: MANUAL DIFF FLAG NO
[2020-02-25 11:32] LABS: Basophils Percent Auto 0.3 % (0-2); Eosinophils Absolute Auto 0.2 X10*3/uL (0.0-0.4); Eosinophils Percent Auto 2.4 % (0-4); Hematocrit 33.1 % (37-47); Hemoglobin 10.8 g/dl (12.0-16.0); Imm Gran Abs Auto 0.04 X10*3/uL (0.00-0.03); Imm Gran Pct Auto 0.6 % (0.0-0.4); Lymphocytes Percent Auto 14.6 % (20-40); Mean Corpuscular HGB Conc 32.6 g/dl (31.0-35.0); Mean Corpuscular Hemoglobin 31.6 pg (27.0-33.0); Mean Corpuscular Volume 96.8 fL (80-98); Mean Platelet Volume 11.7 fL (9.4-12.3); Monocytes Absolute Auto 0.7 X10*3/uL (0.1-1.2); Monocytes Percent Auto 9.3 % (2-11); Neutrophils Absolute Auto 5.1 X10*3/uL (2.0-8.3); Neutrophils Percent Auto 72.8 % (45-73); Platelet Count 278 X10*3/uL (160-400); Red Blood Count 3.42 X10*6/uL (4.20-5.50); Red Cell Distribution Width 13.7 % (11.0-16.0)
== END 2020-02-25 09:03 | disposition home or self-care (01) ==
LOC: HO.LAB 09:02
PROVIDERS: PCP Psychiatry & Neurology Child & Adolescent Psychiatry; Visit Provider Surgery
DX: Z98.890 Other specified postprocedural states (principal)
CPT/HCPCS: 36415; 85025; 86140; 99212

== ENCOUNTER → 2020-03-03 10:48 | Outpatient (BNVA) | payer MEDICARE, SELFPAY | PROVIDERS: PCP Psychiatry & Neurology Child & Adolescent Psychiatry; Referring Provider Psychiatry & Neurology Child & Adolescent Psychiatry; Visit Provider Surgery | DX: Z98.890 Other specified postprocedural states (principal) | CPT/HCPCS: 99212 ==

== ENCOUNTER → 2020-04-13 08:13 | Outpatient (BNVA) | payer MEDICARE, SELFPAY | PROVIDERS: PCP Psychiatry & Neurology Child & Adolescent Psychiatry; Visit Provider Physician Assistant | DX: E66.3 Overweight (principal); K91.2 Postsurgical malabsorption, not elsewhere classified; Z90.3 Acquired absence of stomach [part of]; Z98.890 Other specified postprocedural states | CPT/HCPCS: 99212; Q3014 ==

== ENCOUNTER → 2020-05-04 08:19 | Outpatient (BNVA) | payer MEDICARE, SELFPAY | PROVIDERS: PCP Psychiatry & Neurology Child & Adolescent Psychiatry; Visit Provider Dietitian, Registered ==

== ENCOUNTER 2020-09-06 08:14 | Outpatient (REF) | payer MEDICARE, SELFPAY ==
--- NOTE | ~2020-09-06 | XR_ITS ---
EXAMINATION: XR PELVIS CLINICAL INFORMATION: Pain COMPARISON: Previous x-ray November 2019 TECHNIQUE: AP view of the pelvis. FINDINGS: There is a left hip replacement in satisfactory position. No fracture, dislocation or x-ray evidence of loosening is seen. There is mild arthritis at the right hip joint with joint space narrowing and osteophyte formation. There is proliferative bone reaction seen at the iliac crests and bilateral greater trochanters. Bones of the pelvis are otherwise unremarkable. There are degenerative changes of the lumbar spine. There is soft tissue arterial calcification. XR/XR pelvis 1-2V IMPRESSION: Satisfactory appearance of left replacement.
== END 2020-09-06 08:15 | disposition home or self-care (01) ==
LOC: HO.HOSX 08:14
PROVIDERS: Visit Provider Orthopaedic Surgery
DX: T84.84XA Pain due to internal orthopedic prosthetic devices, implants and grafts, initial encounter (principal); Z96.642 Presence of left artificial hip joint
CPT/HCPCS: 72170; 99212